=== PATIENT | female | born 1985 | race Caucasian/White ===

== ENCOUNTER 2017-08-15 05:25 | Emergency (ER) | payer BC ==
[~2017-08-15] VITALS: Ht 154.9 cm; Wt 52.6 kg
--- NOTE | 2017-08-15 05:30 | ER Report ---
History and Physical Time Seen By MD: 05:29 (GAVIOTA MI MD) HPI/ROS CHIEF COMPLAINT: possible miscarriage HISTORY OF PRESENT ILLNESS: This is a 32 year old female. She awoke this morning with blood from her vagina. She is about 11 weeks . Passes some more firm material that could be blood clot versus tissue. Has had a previous miscarriage at about 4 weeks along. Has no pain or cramping. No other recent illness or problems. Normal so far without any other problems. Blood type O positive. No recent problems with bowels. Has had some constipation earlier with . No dysuria or problems with urination. (GAVIOTA MI MD) Allergies: Coded Allergies: Penicillins (Verified Allergy, Intermediate, HIVES, 08/15/17) Home Meds Reported Medications Vits W-Ca,Fe,Fa(<1MG) ( VITAMINS) 1 Each Tablet, 1 EACH PO DAILY, TAB 08/15/17 Reviewed Nurses Notes: Yes (GAVIOTA MI MD) Constitutional Vital Sign - Last 24 Hours 08/15/17 08/15/17 08/15/17 08/15/17 05:25 05:28 05:32 05:40 Temp 98.4 Pulse ??? 106 97 Resp 18 B/P (MAP) 119/96 (104) 119/96 Pulse Ox 96 98 O2 Delivery Room Air 08/15/17 08/15/17 08/15/17 08/15/17 05:55 06:10 06:25 06:40 Pulse ? 08/15/17 06:55 Pulse ??? (DEBBI VALDIVIA MD) Physical Exam General Appearance: The patient is alert, anxious about the situation. Respiratory: Lungs are clear to auscultation. Cardiac: Regular rate and rhythm Gastrointestinal: Abdomen is soft and non tender Skin: No rashes or lesions. DIFFERENTIAL DIAGNOSIS: After history and physical exam differential diagnosis was considered for threatened miscarriage. Pelvic exam: The vulva was normal no lesions. The vagina did not have significant discharge, but has small amount of blood. The cervix was closed no bleeding and no purulent drainage. The cervix was non tender. The adnexa were non-tender The exam was performed with a winterizer. (GAVIOTA MI MD) Medical Decision Making Data Points Laboratory Hematology Test 08/15/17 05:45 08/15/17 05:50 Red Blood Count 4.52 M/uL (4.17-5.56) Mean Corpuscular Volume 95.5 fL (80.0-96.0) Mean Corpuscular Hemoglobin 33.9 pg (26.0-33.0) Mean Corpuscular Hemoglobin Concent 35.5 g/dL (32.0-36.0) Red Cell Distribution Width 12.2 % (11.5-14.5) Mean Platelet Volume 7.5 fL (7.2-11.1) Neutrophils (%) (Auto) 58.5 % (39.4-72.5) Lymphocytes (%) (Auto) 32.7 % (17.6-49.6) Monocytes (%) (Auto) 6.9 % (4.1-12.4) Eosinophils (%) (Auto) 1.7 % (0.4-6.7) Basophils (%) (Auto) 0.2 % (0.3-1.4) Nucleated RBC Relative Count (auto) 0.0 /100WBC Neutrophils # (Auto) 4.5 K/uL (2.0-7.4) Lymphocytes # (Auto) 2.5 K/uL (1.3-3.6) Monocytes # (Auto) 0.5 K/uL (0.3-1.0) Eosinophils # (Auto) 0.1 K/uL (0.0-0.5) Basophils # (Auto) 0.0 K/uL (0.0-0.1) Nucleated RBC Absolute Count (auto) 0.00 K/uL Prothrombin Time 13.2 seconds (12.0-14.4) Prothromb Time International Ratio 1.00 Activated Partial Thromboplast Time 28 seconds (23-35) Sodium Level 137 mmol/L (137-145) Potassium Level 3.5 mmol/L (3.5-5.0) Chloride Level 103 mmol/L (98-107) Carbon Dioxide Level 23 mmol/L (22-31) Blood Urea Nitrogen 10 mg/dl (7-18) Creatinine 0.70 mg/dl (0.52-1.04) Glomerular Filtration Rate Calc > 60.0 Random Glucose 90 mg/dl (75-110) Calcium Level 9.3 mg/dl (8.4-10.2) Total Bilirubin 0.7 mg/dl (0.2-1.3) Aspartate Amino Transf (AST/SGOT) 22 U/L (0-35) Alanine Aminotransferase (ALT/SGPT) 29 U/L (0-56) Alkaline Phosphatase 54 U/L (0-126) Total Protein 7.2 gm/dl (6.3-8.2) Albumin 4.1 g/dl (3.5-5.0) Human Chorionic Gonadotropin, Qual Positive (NEGATIVE) Human Chorionic Gonadotropin, Quant [id number] mIU/ml Urine Color Yellow Urine Clarity Clear Urine pH 6.0 pH (4.8-9.5) Urine Specific Warren 1.021 Urine Protein Negative mg/dL (NEGATIVE) Urine Glucose (UA) Negative mg/dL (NEGATIVE) Urine Ketones Negative mg/dL (NEGATIVE) Urine Blood Large (NEGATIVE) Urine Nitrite Negative (NEGATIVE) Urine Bilirubin Negative (NEGATIVE) Urine Urobilinogen Negative mg/dL (0.2-1.9) Urine Leukocyte Esterase Negative (NEGATIVE) Urine RBC 20 /HPF (0-2/HPF) Urine WBC 1 /HPF (0-5/HPF) Urine Squamous Epithelial Cells Many /LPF (</=FEW) Urine Bacteria Few /HPF (NONE-FEW) Urine Mucus Few /HPF (NONE-FEW) Chemistry Test 08/15/17 05:45 08/15/17 05:50 White Blood Count 7.7 k/uL (4.5-11.0) Red Blood Count 4.52 M/uL (4.17-5.56) Hemoglobin 15.3 g/dL (12.0-16.0) Hematocrit 43.2 % (34.0-47.0) Mean Corpuscular Volume 95.5 fL (80.0-96.0) Mean Corpuscular Hemoglobin 33.9 pg (26.0-33.0) Mean Corpuscular Hemoglobin Concent 35.5 g/dL (32.0-36.0) Red Cell Distribution Width 12.2 % (11.5-14.5) Platelet Count 233 K/uL (150-450) Mean Platelet Volume 7.5 fL (7.2-11.1) Neutrophils (%) (Auto) 58.5 % (39.4-72.5) Lymphocytes (%) (Auto) 32.7 % (17.6-49.6) Monocytes (%) (Auto) 6.9 % (4.1-12.4) Eosinophils (%) (Auto) 1.7 % (0.4-6.7) Basophils (%) (Auto) 0.2 % (0.3-1.4) Nucleated RBC Relative Count (auto) 0.0 /100WBC Neutrophils # (Auto) 4.5 K/uL (2.0-7.4) Lymphocytes # (Auto) 2.5 K/uL (1.3-3.6) Monocytes # (Auto) 0.5 K/uL (0.3-1.0) Eosinophils # (Auto) 0.1 K/uL (0.0-0.5) Basophils # (Auto) 0.0 K/uL (0.0-0.1) Nucleated RBC Absolute Count (auto) 0.00 K/uL Prothrombin Time 13.2 seconds (12.0-14.4) Prothromb Time International Ratio 1.00 Activated Partial Thromboplast Time 28 seconds (23-35) Glomerular Filtration Rate Calc > 60.0 Calcium Level 9.3 mg/dl (8.4-10.2) Total Bilirubin 0.7 mg/dl (0.2-1.3) Aspartate Amino Transf (AST/SGOT) 22 U/L (0-35) Alanine Aminotransferase (ALT/SGPT) 29 U/L (0-56) Alkaline Phosphatase 54 U/L (0-126) Total Protein 7.2 gm/dl (6.3-8.2) Albumin 4.1 g/dl (3.5-5.0) Human Chorionic Gonadotropin, Qual Positive (NEGATIVE) Human Chorionic Gonadotropin, Quant 607344 mIU/ml Urine Color Yellow Urine Clarity Clear Urine pH 6.0 pH (4.8-9.5) Urine Specific Warren 1.021 Urine Protein Negative mg/dL (NEGATIVE) Urine Glucose (UA) Negative mg/dL (NEGATIVE) Urine Ketones Negative mg/dL (NEGATIVE) Urine Blood Large (NEGATIVE) Urine Nitrite Negative (NEGATIVE) Urine Bilirubin Negative (NEGATIVE) Urine Urobilinogen Negative mg/dL (0.2-1.9) Urine Leukocyte Esterase Negative (NEGATIVE) Urine RBC 20 /HPF (0-2/HPF) Urine WBC 1 /HPF (0-5/HPF) Urine Squamous Epithelial Cells Many /LPF (</=FEW) Urine Bacteria Few /HPF (NONE-FEW) Urine Mucus Few /HPF (NONE-FEW) Coagulation Test 08/15/17 05:45 Prothrombin Time 13.2 seconds Prothromb Time International Ratio 1.00 Activated Partial Thromboplast Time 28 seconds Urinalysis Test 08/15/17 05:50 Urine Color Yellow Urine Clarity Clear Urine pH 6.0 pH (4.8-9.5) Urine Specific Warren 1.021 Urine Protein Negative mg/dL (NEGATIVE) Urine Glucose (UA) Negative mg/dL (NEGATIVE) Urine Ketones Negative mg/dL (NEGATIVE) Urine Blood Large (NEGATIVE) Urine Nitrite Negative (NEGATIVE) Urine Bilirubin Negative (NEGATIVE) Urine Urobilinogen Negative mg/dL (0.2-1.9) Urine Leukocyte Esterase Negative (NEGATIVE) Urine RBC 20 /HPF (0-2/HPF) Urine WBC 1 /HPF (0-5/HPF) Urine Squamous Epithelial Cells Many /LPF (</=FEW) Urine Bacteria Few /HPF (NONE-FEW) Urine Mucus Few /HPF (NONE-FEW) (DEBBI VALDIVIA MD) EKG/Imaging Imaging Transvaginal ultrasound revealed single intrauterine with heart rate at 16 1 bpm. No abnormalities found. Normal gestation (DEBBI VALDIVIA MD) ED Course/Re-evaluation Clinical Indication for ER IV: IV Access Decision to Disposition Date: Aug 15, 2017 Decision to Disposition Time: 07:18 (GAVIOTA MI MD) ED Course Patient will be discharged to home follow up with [facility]. She was given a CD of her ultrasound and labs to take to her [facility] in [place]. Patient will plan and in agreement. Decision to Disposition Date: Aug 15, 2017 Decision to Disposition Time: 08:35 (DEBBI VALDIVIA MD) Depart Departure Latest Vital Signs Vital Signs Date Time Temp Pulse Resp B/P (MAP) Pulse Ox O2 Delivery O2 Flow Rate FiO2 08/15/17 06:55 ??? 08/15/17 05:40 98 08/15/17 05:32 98.4 18 119/96 Room Air (DEBBI VALDIVIA MD) Impression: Primary Impression: Threatened Additional Impression: Vaginal bleeding Condition: Improved Disposition: HOME OR SELF-CARE Patient Instructions: Threatened Miscarriage (ED) Additional Instructions: Pelvic rest. Light to moderate physical activity. Call your OB physician this morning to let them know you were here. They will likely want to have you repeat a lab test called a quantitative HCT tomorrow or Saturday. Problem Qualifiers GAVIOTA MI MD Aug 15, 2017 05:30 DEBBI VALDIVIA MD Aug 15, 2017 08:38
[2017-08-15] MEDS ORDERED: PREN-127 PO (05:38)
[2017-08-15 06:14] LABS: PLATELET COUNT, AUTOMATED 233 K/uL (150-450)
--- NOTE | 2017-08-15 07:35 | RADIOLOGY IMAGING REPORT ---
FACILITY: [facility] - [place] PATIENT NAME: Geneva Cuba : 1985 MR: [id number] V: [id number] EXAM DATE: [id number] ORDERING PHYSICIAN: GAVIOTA MI TECHNOLOGIST: Location: [facility] [place] Patient: Geneva Cuba : 1985 Visit/Account:[id number] Date of Sevice: 08/15/2017 Examination: First trimester surgical sonogram. Comparisons: None. HISTORY: Vaginal bleeding. FINDINGS: There is a living single intrauterine with a crown-rump length of 3.8 cm corresponding to 1 0 weeks 5 days. Normal-appearing gestational sac is noted. heart rate is 161 bpm. No free fluid within the cul-de-sac. The pelvic vasculature is unremarkable. The right ovary was not identified. No right adnexal mass noted. The left ovary measures 2.0 x 2.0 x 1.1 cm with normal appearance of the left ovary. IMPRESSION: 1. Living single intrauterine at 10 weeks 5 days concordant with dates by last menstrual pe riod. 2. No abnormality noted on today's exam. Report Dictated By: Bashir Fitzgerald MD at 08/15/2017 7:27 AM Report E-Signed By: Bashir Fitzgerald MD at 08/15/2017 7:30 AM WSN:[id number]
[2017-08-15 09:20] VITALS: BP 106/60
== END 2017-08-15 09:20 | disposition home or self-care (01) ==
LOC: ER 05:33
DX: O20.0 Threatened abortion (principal); Z3A.11 11 weeks gestation of pregnancy
CPT/HCPCS: 76817; 81001; 82040; 82247; 82310; 82374; 82435; 82565; 82947; 84075; 84132; 84155; 84295; 84450; 84460; 84520; 84702; 84703; 85025; 85610; 85730; 99284